=== PATIENT | male | born 1980 | race Caucasian/White ===

== ENCOUNTER 2024-04-17 09:13 | Emergency (ER) | payer BC, OTHER ==
[2024-04-17] MEDS ORDERED: Ibuprofen 800 MG TAB ONE (09:45)
== END 2024-04-17 10:26 | disposition home or self-care (01) ==
LOC: NAV ERS 09:13
DX: B34.9 Viral infection, unspecified (principal); F17.290 Nicotine dependence, other tobacco product, uncomplicated; Z79.51 Long term (current) use of inhaled steroids
CPT/HCPCS: 71046; 87428